=== PATIENT | female | born 2000 | race Caucasian/White ===

== ENCOUNTER 2024-09-30 19:17 | Emergency (ER) | payer BC ==
[2024-09-30] MEDS ORDERED: Lidocaine 1% 5 ML VIAL INFILT ONE (19:18)
== END 2024-09-30 19:55 | disposition home or self-care (01) ==
LOC: FB.ED 19:17
DX: S61.217A Laceration without foreign body of left little finger without damage to nail, initial encounter (principal); W45.8XXA Other foreign body or object entering through skin, initial encounter
CPT/HCPCS: 12001; 99282